=== PATIENT | female | born 1990 | race Caucasian/White ===

== ENCOUNTER → 2017-01-09 10:27 | Observation (INO) ==
[2017-01-09 09:56] LABS: Amphetamine Screen,Urine Negative ng/mL (Cutoff=1000); Barbiturate Screen,Urine Negative ng/mL (Cutoff=200); Benzodiazepines Screen,Urine Negative ng/mL (Cutoff=200); Cannabinoid Screen,Urine Negative ng/mL (Cutoff = 50); Cocaine Screen,Urine Negative ng/mL (Cutoff= 300); Opiate Screen,Urine Negative ng/mL (Cutoff=300); Phencyclidine Screen,Urine Negative ng/mL (Cutoff=25)
--- NOTE | 2017-01-09 10:24 | OB/GYN Progress Note ---
Date of Encounter: 01/09/17 Time of Encounter: 10:20 - Assessment and Plan (1) Near syncope Current Visit: Yes Status: Acute Pt denies any other instances of this during this . In 2013 she had a work-up for palpitations and was found to have a normal echo and EKG. Accucheck in the 70's now. Given that pt had primarily carbohydrates this am, I suspect that the episode was most likely due to hypoglycemia. Hydration also discussed. Pt declines additional cardiac work-up at this time but would consider if has any further episodes. (2) 37 weeks gestation of Current Visit: Yes Status: Acute (3) Decreased movement affecting management of mother, antepartum Current Visit: Yes Status: Acute NST reactive. Pt feeling movement now. Kick counts discussed. Qualifiers: Fetus number: single or unspecified fetus Qualified Code(s): O36.8190 - Decreased movements, unspecified trimester, not applicable or unspecified (4) NST (non-stress test) reactive Current Visit: Yes Status: Acute Subjective - Subjective Interval history: 26 year-old presenting at 37w3d with c/o decreased movement. She reports she was sitting at her desk today around 0900 when she felt like she was about to pass out. When she came to, she was pale and sweaty and felt her heart racing. Now she is feeling better. She feels tired but otherwise well. Since arriving to triage she has felt the baby move more. No other complaints. Pt reports she had cereal for breakfast and then had some chocolate and water when she had the episode. Antepartum ROS: no loss of fluid, no vaginal bleeding, no movement normal , no contractions Objective - Vital Signs Vital Signs: Intake and Output 01/08/17 01/09/17 01/09/17 23:59 07:59 15:59 Other: Weight 63.7 kg Blood Glucose* 73 Patient Weight 01/09/17 23:59 Weight 63.7 kg - Exam FHR: category 1 FHR comments: NST reactive Auscultation: bilateral: normal Abdomen: Present: soft, gravid. Absent: tenderness Comments: Heart RRR with S1 and S2. No additional sounds noted. Accucheck WNL.
== END | disposition home or self-care (01) ==
LOC: 1NENULAB
PROVIDERS: ADMIT Obstetrics & Gynecology; ATTEND Obstetrics & Gynecology

== ENCOUNTER 2017-01-22 08:40 | Inpatient (IN) ==
[2017-01-22] MEDS ORDERED: Ringers Solution, Lactated 1,000 ML ONE ×2 (08:49→11:03)
[2017-01-22] MEDS ORDERED: Ringers Solution, Lactated 1,000 ML IVC ONE (09:05)
[2017-01-22] MEDS ORDERED: Metoclopramide 10 MG/2 ML VIAL IVP ONE (09:05)
[2017-01-22] MEDS ORDERED: Oxytocin 20 units/ LR 1000 mL 20 UNIT/1,000 ML BAG IVC ONE (09:05)
[2017-01-22] MEDS ORDERED: CeFAZolin Pre 2,000 MG/100 ML 2,000 MG/100 ML BAG IVPB ONE (09:05)
[2017-01-22] MEDS ORDERED: Famotidine 20 MG/2 ML VIAL IVP ONE (09:05)
[2017-01-22] MEDS ORDERED: Oxytocin 20 units/ LR 1000 mL 20 UNIT/1,000 ML BAG IVC SCH ×3 (09:15→13:15)
[2017-01-22 09:16] LABS: Basophils % 0.4 %; Eosinophils # 0.1 K/mcL (0.0-0.6); Eosinophils % 1.2 %; Hematocrit 39.2 % (35.3-44.9); Immature Granulocytes % 0.6 % (0-4); Lymphocytes # 2.2 K/mcL (0.6-4.6); Lymphocytes % 22.6 %; Mean Corpuscular HGB Conc 33.2 g/dL (31.6-35.5); Mean Corpuscular Hemoglobin 29.4 pg (28.0-33.3); Mean Corpuscular Volume 88.7 fL (83.0-100.0); Mean Platelet Volume 11.6 fL (9.4-12.4); Monocytes # 0.6 K/mcL (0.0-1.3); Monocytes % 6.2 %; Neutrophils # 6.8 K/mcL (1.6-8.9); Platelet Count 186 K/mcL (140-400); Red Blood Count 4.42 M/mcL (3.82-4.97); Red Cell Distribution Width 14.3 % (11.5-14.5)
--- NOTE | 2017-01-22 09:38 | OB/GYN History & Physical ---
Date of Encounter: 01/22/17 Time of Encounter: 09:20 Assessment and Plan (1) 39 weeks gestation of Current visit: Yes Status: Acute Patient reports good movement. Denies vaginal fluid leakage or bleeding. Patient will undergo due to history of prior . - IV fluids. - Antibiotic Prophylaxis: cefazolin. - Oxytocin. - Pain control meds PRN. - NPO diet. History of Present Illness Chief complaint: Scheduled HPI: Ms. Perez is a 26 year old female at 39 1/7 wks gestational age with a PMH of prior that presents for a scheduled . She admits to good movement and denies contractions. She denies any vaginal fluid leakage or bleeding. She denies headaches, vision changes, chest pain, nausea, vomiting, fever, chills, dysuria, diarrhea, or constipation. Blood type: AB+ GBS: positive Rubella: immune HbSAG: non-reactive (07/21/16) T-pallidum: negative. Varicella: positive. HIV: non-reactive. Past Med Surg Social Fam HX - Past Medical History Medical history: no medical history Psychiatric history: no psych history - Past Surgical History Surgical History: - Social History Smoking Status: Never smoker Smokeless Tobacco Status: No Alcohol use: none Drug use: none - Family History Mother Living Status: Still Living Hx Family Cardiac Disorders: Yes (hypertension, high cholesterol) Obstetrical History - Pregnancies : 2 Para: 1 Term: 0 : 0 Ab's: 0 Livin Medications and Allergies Vit Calc,Iron,Folic [ Vitamins] 1 tab PO DAILY 01/09/17 [ History] 3 Allergy/AdvReac Type Severity Reaction Status Date / Time No Known Allergies Allergy Verified 04/10/16 19:06 Exam - Vital Signs Vital signs: BP: 122/82 HR: 90 - Constitutional Constitutional: well developed, well nourished, no acute distress, average body habitus - HEENT HEENT: EOMI, PERRL, Normocephaly, Mucus Membranes Moist - Neck Neck exam: normal inspection, trachea midline - Lungs Respiratory exam: CTAB - Cardiovascular Cardiovascular exam: RRR, +S1, +S2 - Abdomen Abdomen: Present: bowel sounds normal, gravid, non tender - Extremities Extremities exam: normal capillary refill, normal inspection, radial pulses palpable and symmetrical Deep Tendon Reflex Grade: 2+ Normal - Comments Comments: CN II-XII intact. No focal deficits noted. Results Result Diagrams: 01/22/17 09:03 All other labs normal.
[2017-01-22] MEDS ORDERED: *HR* Meperidine 50 MG/ML SYRINGE IVP PRN (09:44)
[2017-01-22] MEDS ORDERED: *HR* Promethazine 25 MG/ML VIAL IVP PRN (09:44)
[2017-01-22] MEDS ORDERED: *HR* HYDROmorphone (PF) 1 MG/ML SYRINGE IVP PRN ×2 (09:44→19:28)
--- NOTE | 2017-01-22 09:44 | Anesthesia Evaluation PreOp ---
Date of Encounter: 01/22/17 Time of Encounter: 09:42 - Past History Planned Operation: repeat Cardiac History: Denies any Significant Hx Pulmonary History: Denies Any Significant HX [employer] SALESPERSON History: Denies Any Significant HX Other Medical History: Denies Any Significant HX Anesthesia History: No Prior Anesthetic Complications, Past Anesthesia : Yes (term) Alcohol Use: none Drug use: none Medications and Allergies Vit Calc,Iron,Folic [ Vitamins] 1 tab PO DAILY 01/09/17 [ History] 3 Allergy/AdvReac Type Severity Reaction Status Date / Time No Known Allergies Allergy Verified 04/10/16 19:06 Anesthesia Results - Labs 01/22/17 09:03 Anesthesia Exam - HEENT Pupil (Motor): Pupils equal Mallampati: I Teeth: Normal Oral Opening: Greater than 3 - [employer] SALESPERSON LOC: Oriented [employer] SALESPERSON Motor: Normal RUE, Normal LUE, Normal RLE, Normal LLE, Normal Face [employer] SALESPERSON Sensory: Normal: RUE, LUE, RLE, LLE, Face - Cardiac Rhythm: Regular Murmur: None - Pulmonary Breath Sounds: bilateral Clear Respiratory Effort: Symmetrical Anesthesia Assess/Plan ASA Score: 2 Modified Peter Scale for Level of Consciousness: Cooperative, oriented, and tranquil Anesthetic Plan: General, Regional Monitoring Plan: Standard Monitors Recovery Plan: PACU
[2017-01-22] MEDS ORDERED: *HR* Phenylephrine 10 MG/ML VIAL ONE (11:30)
[2017-01-22] MEDS ORDERED: *HR* Oxytocin 10 UNIT/ML VIAL IM ONE (11:30)
[2017-01-22] MEDS ORDERED: *HR* Morphine Sulfate/PF 5 MG/10 ML AMPUL ONE (11:30)
[2017-01-22] MEDS ORDERED: *HR* FentaNYL (PF) 100 MCG/2 ML VIAL ONE (11:30)
[2017-01-22] MEDS ORDERED: EPHEDrine 50 MG/ML VIAL ONE (11:30)
[2017-01-22] MEDS ORDERED: Ondansetron 4 MG/2 ML VIAL ONE (12:32)
--- NOTE | 2017-01-22 13:07 | OB/GYN Procedure Note ---
Section - Date of procedure: 01/22/17 Preop diagnosis: desires repeat Post-op diagnosis: same Procedure: repeat low transverse Surgeon: Leilani Khan Estimated blood loss (cc): 350 Anesthesia Type: General section complications: none Disposition: L&D Recovery Room Specimens: Placenta - Narrative Narrative: Patient was brought to the operating room with satisfactory epidural anesthesia. The abdomen was prepped and draped in a sterile fashion. A Pfannenstiel incision was made and carried sharply down to the level of fascia. The fascia was incised transversely. The fascia was dissected away from the underlying rectus muscles. With sharp and blunt dissection, rectus muscles were divided in midline. The perineum was entered bluntly. The incision was carried vertically with scissors. Transverse incision was made across the bladder peritoneum. The bladder was dissected away from the underlying lower uterine segment. Bladder retractor was placed to protect the bladder. The lower uterine segment was entered sharply with a scalpel. Incision was manually extended. Meconium stained amniotic fluid was encountered. The 's head was pulled up and delivered easily as were the shoulders and body. The mouth and oropharynx were suctioned. The cord was clamped and cut. The infant was passed off to the waiting raw sampler in satisfactory condition. Placenta was extracted completely and found to be intact. Uterus was explored and found to be empty. Uterus was delivered through the abdominal incision and massaged vigorously. Intravenous Pitocin was administered. Clamps were placed about the margins of the uterine incision, which was closed primarily with a running locking stitch of 0 Vicryl with adequate hemostasis. Secondary running locking stitch was placed for extra strength to the wound. The uterus was returned to its proper anatomic position in the abdomen. The fascia was closed with a simple running stitch of 0 vicryl. The skin was closed with running subcuticular of 4-0 vicryl. Uterus was expressed of its contents. Patient was brought to the recovery room in satisfactory condition. There were no complications. There was 350 cc of blood loss. All sponge, needle, and instrument counts were reported to be correct.
[2017-01-22] MEDS ORDERED: Ondansetron 4 MG/2 ML VIAL IVP PRN (13:08)
[2017-01-22] MEDS ORDERED: Sennosides 8.6 MG TABLET PO PRN (13:08)
[2017-01-22] MEDS ORDERED: *HR* OxyCODONE/APAP 5/325 TABLET PO PRN (13:08)
[2017-01-22] MEDS ORDERED: Metoclopramide 10 MG/2 ML VIAL IVP PRN (13:08)
[2017-01-22] MEDS ORDERED: *HR* Morphine 2 MG/ML SYRINGE IVP PRN (19:28)
[2017-01-23] MEDS: Ibuprofen 600 MG TABLET PO PRN ×4 (00:15→21:02)
[2017-01-23 05:34] LABS: Basophils % 0.3 %; Eosinophils # 0.1 K/mcL (0.0-0.6); Eosinophils % 0.7 %; Hematocrit 26.7 % (35.3-44.9); Immature Granulocytes % 0.5 % (0-4); Lymphocytes # 1.8 K/mcL (0.6-4.6); Lymphocytes % 17.2 %; Mean Corpuscular HGB Conc 32.6 g/dL (31.6-35.5); Mean Corpuscular Hemoglobin 29.7 pg (28.0-33.3); Mean Corpuscular Volume 91.1 fL (83.0-100.0); Monocytes # 0.6 K/mcL (0.0-1.3); Monocytes % 5.5 %; Neutrophils # 7.9 K/mcL (1.6-8.9); Platelet Count 156 K/mcL (140-400); Red Blood Count 2.93 M/mcL (3.82-4.97); Red Cell Distribution Width 14.3 % (11.5-14.5); Segmented Neutrophils % 75.8 %
[2017-01-23 05:40] LABS: Hemoglobin 8.7 g/dL (11.5-15.4)
[2017-01-23] MEDS: Prenatal Vit/FA 1 EACH TABLET PO SCH (07:52)
--- NOTE | 2017-01-23 10:15 | OB/GYN Progress Note ---
Date of Encounter: 01/23/17 Time of Encounter: 10:05 - Assessment and Plan (1) Status post section Current Visit: Yes Status: Acute Abdominal pain is well controlled. Patient is able to ambulate. She is voiding. No bowel movement yet. Able to breast feed. Minimal vaginal bleeding. Drainage from incision site has slowed down since yesterday. - Continue pain control. - Continue senna. (2) Postoperative anemia Current Visit: Yes Status: Acute Hemoglobin stable at 8.7. - Continue iron supplements. (3) Chest pain Current Visit: Yes Status: Acute Atypical chest pain presentation. Pain not reproducible with palpation. Pain likely secondary to referred gas pain. Pt feels that the pain is the same as the gas pain she had right after delivery. EKG sinus rhythm. LE without edema, erythema, or warmth. Will continue to monitor closely. If pain persists or worsens or if pt develops tachycardia or other complaints would consider chest x -ray and/or spiral CT. Qualifiers: Chest pain type: unspecified Qualified Code(s): R07.9 - Chest pain, unspecified Subjective - Subjective Principal diagnosis: S/P Interval history: When seen today, patient says that she has minor chest pain when she is walking. The pain is located in the upper chest bilaterally. She denies any shortness of breath. The pain is relieved with rest. Her abdominal pain from the incision has improved to a 3/10 on the pain scale. She is able to ambulate. She is able to void. She has minor vaginal bleeding and it has been improving since yesterday. The baby is doing well and she is able to breast feed. Patient reports: appetite normal, voiding normally, pain well controlled, ambulating normally [place]: doing well, nursing well Objective - Vital Signs Latest vital signs: Vital Signs Temp Pulse Resp BP Pulse Ox 01/23/17 08:01 16 01/23/17 07:40 98.6 F 98 16 115/73 99 01/23/17 03:15 99.0 F 99 14 97/54 100 01/23/17 00:00 98.8 F 94 14 106/66 98 01/22/17 20:25 98.7 F 97 14 103/67 98 01/22/17 18:15 99.4 F 100 18 101/60 97 01/22/17 17:15 99.0 F 95 18 104/65 98 01/22/17 16:15 98.8 F 108 16 124/82 01/22/17 15:45 98.8 F 108 16 124/82 01/22/17 15:15 98.6 F 82 16 114/74 99 Intake and Output 01/22/17 01/23/17 01/23/17 23:59 07:59 15:59 Intake Total 1200 / 1200 Output Total 1950 / 1950 Balance -750 / -750 Intake: IV Fluids 1000 / 1000 Pitocin 20 unit In 1,000 ml @ 1000 / 1000 125 mls/hr IVC .Q8H CARMINA Rx#: [id number] Oral 200 / 200 Output: Urine 800 / 800 Catheter 1150 / 1150 Other: Weight 61.3 kg Patient Weight 01/23/17 23:59 Weight 61.3 kg - Exam Lungs: bilateral: normal Chest: Normal S1 (Heart rate slightly tachy. Chest pain not reproducible with palpation.), Normal S2 Extremities: Present: normal Abdomen: Present: normal appearance, soft, tenderness (Minor tenderness to palpation of R and L lower quadrant. ) Incision: Present: normal, intact, other (Patient was having minor draiange from incision site yesterday. Area was marked yesterday and has slightly increased. ), dressed Uterus: Present: normal, firm - Labs Labs: Laboratory Results - last 24 hr 01/23/17 05:14 WBC 10.5 RBC 2.93 L Hgb 8.7 L D Hct 26.7 L MCV 91.1 MCH 29.7 MCHC 32.6 RDW 14.3 Plt Count 156 MPV 11.0 Immature Gran % 0.5 Seg Neutrophils % 75.8 Lymphocytes % 17.2 Monocytes % 5.5 Eosinophils % 0.7 Basophils % 0.3 Neutrophils # 7.9 Lymphocytes # 1.8 Monocytes # 0.6 Eosinophils # 0.1 Basophils # 0.0
[2017-01-23] MEDS: Simethicone 80 MG TAB.CHEW PO PRN ×2 (12:06→18:19)
--- NOTE | 2017-01-23 16:17 | Electrocardiograph Report ---
[place] [id number] Test Date: 2017-01-23 Pat Name: Sue Perez Department: 106 Room: [facility] Gender: F Tool Maintenance Technician: JOSE : 1990 Requested By: John Nogueira Order Number: [id number] Reading MD: Aruna Rondon Measurements Intervals [place] Rate: 82 P: 66 DC: 148 QRS: 64 QRSD: 84 T: 30 QT: 336 QTc: 374 Interpretive Statements SINUS RHYTHM POSSIBLE RIGHT VENTRICULAR CONDUCTION DELAY Electronically Signed On 01-23-2017 16:15:50 EDT by Aruna Rondon
[2017-01-23 23:54] LABS: Basophils % 0.3 %; Eosinophils # 0.2 K/mcL (0.0-0.6); Eosinophils % 1.4 %; Hematocrit 25.7 % (35.3-44.9); Hemoglobin 8.5 g/dL (11.5-15.4); Immature Granulocytes % 0.6 % (0-4); Lymphocytes # 2.4 K/mcL (0.6-4.6); Lymphocytes % 21.9 %; Mean Corpuscular HGB Conc 33.1 g/dL (31.6-35.5); Mean Corpuscular Hemoglobin 30.5 pg (28.0-33.3); Mean Corpuscular Volume 92.1 fL (83.0-100.0); Mean Platelet Volume 10.9 fL (9.4-12.4); Monocytes # 0.7 K/mcL (0.0-1.3); Monocytes % 5.9 %; Neutrophils # 7.7 K/mcL (1.6-8.9); Platelet Count 179 K/mcL (140-400); Red Blood Count 2.79 M/mcL (3.82-4.97); Red Cell Distribution Width 14.6 % (11.5-14.5); Segmented Neutrophils % 69.9 %
[2017-01-24] MEDS: Ibuprofen 600 MG TABLET PO PRN ×2 (03:37→10:35)
[2017-01-24] MEDS: Simethicone 80 MG TAB.CHEW PO PRN ×2 (03:37→10:35)
[2017-01-24 08:27] VITALS: BP 113/80
--- NOTE | 2017-01-24 09:54 | Discharge Summary ---
Date of Encounter: 01/24/17 Time of Encounter: 09:51 - Discharge Diagnosis (1) Status post section Priority: Primary Status: Acute Comments: Patient doing well s/p C/S Day 2 Pain is well controlled; c/o referred chest pain and abdominal bloating, excellent bowel sounds, taking simethicon, encourage increased water intake, ambulation Lochia is light and without clots VSS Passing flatus, urinating, and tolerating regular diet with problems Discharge home today with baby follow up in office with Dr Khan in 2 weeks Patient declines percocet Rx (2) Anemia during puerperium Priority: Secondary Status: Acute Comments: VSS, asymptomatic Occasional anxiety, tachycardia, no shortness of breath or fatigue Continue with ferrous sulfate upon discharge. (3) Breast feeding status of mother Priority: Secondary Status: Acute Comments: well. - Discharge Medications Prescriptions: Ibuprofen [Motrin] 600 mg PO Q6HR PRN #30 tablet PRN Reason: Cramping Docusate [Colace] 100 mg PO BID #30 capsule Ferrous Sulfate 325 mg PO DAILY #30 tablet Simethicone [Gas-X] 80 mg PO TID PRN #30 tab.chew PRN Reason: Dyspepsia Home Medications: Vit Calc,Iron,Folic [ Vitamins] 1 tab PO DAILY 01/09/17 [ History] Docusate [Colace] 100 mg PO BID #30 capsule 01/24/17 [Rx] Ferrous Sulfate 325 mg PO DAILY #30 tablet 01/24/17 [Rx] Ibuprofen [Motrin] 600 mg PO Q6HR PRN #30 tablet 01/24/17 [Rx] Simethicone [Gas-X] 80 mg PO TID PRN #30 tab.chew 01/24/17 [Rx] Allergies/Adverse Reactions: 3 Allergy/AdvReac Type Severity Reaction Status Date / Time No Known Allergies Allergy Verified 04/10/16 19:06 Data Procedures and tests throughout hospitalization: Laboratory Tests 01/22/17 01/23/17 01/23/17 09:03 05:14 23:45 WBC 9.8 10.5 11.1 RBC 4.42 2.93 L 2.79 L Hgb 13.0 8.7 L D 8.5 L Hct 39.2 26.7 L 25.7 L MCV 88.7 91.1 92.1 MCH 29.4 29.7 30.5 MCHC 33.2 32.6 33.1 RDW 14.3 14.3 14.6 H Plt Count 186 156 179 MPV 11.6 11.0 10.9 Immature Gran % 0.6 0.5 0.6 Seg Neutrophils % 69.0 75.8 69.9 Lymphocytes % 22.6 17.2 21.9 Monocytes % 6.2 5.5 5.9 Eosinophils % 1.2 0.7 1.4 Basophils % 0.4 0.3 0.3 Neutrophils # 6.8 7.9 7.7 Lymphocytes # 2.2 1.8 2.4 Monocytes # 0.6 0.6 0.7 Eosinophils # 0.1 0.1 0.2 Basophils # 0.0 0.0 0.0 Labs on day of discharge: Labs from last 24 hours 01/23/17 23:45 WBC 11.1 RBC 2.79 L Hgb 8.5 L Hct 25.7 L MCV 92.1 MCH 30.5 MCHC 33.1 RDW 14.6 H Plt Count 179 MPV 10.9 Immature Gran % 0.6 Seg Neutrophils % 69.9 Lymphocytes % 21.9 Monocytes % 5.9 Eosinophils % 1.4 Basophils % 0.3 Neutrophils # 7.7 Lymphocytes # 2.4 Monocytes # 0.7 Eosinophils # 0.2 Basophils # 0.0 Date of admission: 01/22/17 08:40 Primary care physician: Terry Cabezas MD Discharging clinician: Gilma Boss Anticipated date of discharge: 01/24/17 - Patient Status Disposition: Home, Self-Care Condition: Good Functional capacity at discharge: independent ambulation Overall status at discharge: patient is progressing back to baseline - Discharge Instructions Follow Up With: Terry Cabezas MD [Primary Care Provider] - Leilani Khan MD [Partnered Physician] - - Diet and Activity Activity: increase activity as tolerated Diet: regular diet Hospital Course Reason for admission: IUP at term Delivery: section Episiotomy: none Laceration: none Other procedures: none complications: none Discharge diagnosis: IUP at term delivered [place] baby: male Time Attestation: Total time spent providing and/or coordinating discharge services: Time Spent: Less than 30 minutes - VTE Documentation of Mechanical Device: Intermittent pneumatic compression device Exam - Constitutional Vitals: Temp Pulse Resp BP Pulse Ox 98.6 F 96 16 113/80 100 01/24/17 08:10 01/24/17 08:10 01/24/17 08:10 01/24/17 08:10 01/24/17 08:10 General appearance IM: cooperative, A&O X 3, pleasant - Respiratory Respiratory exam: Present: CTAB - Cardiovascular Cardiovascular exam IM: Present: RRR, +S1, +S2 - GI/Abdominal GI/Abdominal exam IM: normal bowel sounds, soft Incision: normal, dry, intact - Uterine Tone: Firm Uterus Position: 1 Finger Below Umbilicus, Midline - Extremities Exam Extremities exam IM: Present: normal capillary refill, normal inspection, radial pulses palpable and symmetrical - Neurological Exam Neurological exam: alert, oriented X3
[2017-01-24] MEDS: Prenatal Vit/FA 1 EACH TABLET PO SCH (10:35)
== END 2017-01-24 12:30 | disposition home or self-care (01) | DRG 766 ==
LOC: 1NENULAB 08:40 → 1NENUOBS 15:17
PROVIDERS: ADMIT Student in an Organized Health Care Education/Training Program; ATTEND Student in an Organized Health Care Education/Training Program